=== PATIENT | female | born 1960 | race Caucasian/White ===

== ENCOUNTER 2016-05-05 09:57 | Emergency (ER) | payer MEDICAID ==
[~2016-05-05] VITALS: Ht 154.9 cm; Wt 45.0 kg
[2016-05-05 09:59] VITALS: BP 136/83; PULSE 68; RESP 16; TEMP 98.6; O2SAT 98
[2016-05-05 10:30] VITALS: O2SAT 99
--- NOTE | 2016-05-05 10:36 | PD ---
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 She has been coughing and wheezing. She denies any fevers or any other issues. Modifying Factors: None Associated Signs & Symptoms: Coughing, wheezing, shortness of breath Risk Factors: History of lung cancer PFSH Past Medical History Cancer: Yes (HX OF LUNG CANCER ) Past Surgical History Hysterectomy: Yes Thoracic Surgery: Yes (LUNG SURGERY ) Tympanostomy Tube: Yes Other Surgery: Yes (HIP SURGERY ) Social History Alcohol Use: Yes (3-4 beers a week ) Tobacco Use: No Substance Use: Yes (marajuian for pain ) Allergies-Medications (Allergen,Severity, Reaction): Coded Allergies: Demerol (Verified Allergy, Severe, Nausea/Vomiting, 05/05/16) Review of Systems Except as stated in HPI: all other systems reviewed are Neg Physical Exam Narrative GENERAL: Thin, well-developed elderly white female patient in mild respiratory distress. Awake and oriented 3. SKIN: Warm and dry. HEAD: Normocephalic. EYES: No scleral icterus. No injection or drainage. NECK: Supple, trachea midline. CARDIOVASCULAR: Regular rate and rhythm without murmurs, gallops, or rubs. RESPIRATORY: Breath sounds decreased at the right base, with wheezing mildly throughout bilaterally. Mild accessory muscle use. GASTROINTESTINAL: Abdomen soft, non-tender, nondistended. MUSCULOSKELETAL: No cyanosis, or edema. BACK: Nontender without obvious deformity. No CVA tenderness. Data Data Last Documented VS Vital Signs Date Time Temp Pulse Resp B/P Pulse Ox O2 Delivery O2 Flow Rate FiO2 05/05/16 10:30 99 Room Air 05/05/16 10:10 68 98 05/05/16 09:59 98.6 136/83 Orders Complete Blood Count With Diff (05/05/16 10:32) Basic Metabolic Panel (Bmp) (05/05/16 10:32) Influenzae A/B Antigen (05/05/16 10:32) Iv Access Insert/Monitor (05/05/16 10:32) Electrocardiogram (05/05/16 10:32) Ecg Monitoring (05/05/16 10:32) Oximetry (05/05/16 10:32) Oxygen Administration (05/05/16 10:32) Chest, Single Ap (05/05/16 10:32) Sodium Chloride 0.9% Flush (Ns Flush) (05/05/16 10:45) Methylprednisolone So Succ Inj (Solumedr (05/05/16 10:45) Albuterol-Ipratropium Neb (Duoneb Neb) (05/05/16 10:45) Labs Laboratory Tests Test 05/05/16 10:45 White Blood Count 5.1 TH/MM3 Red Blood Count 4.09 MIL/MM3 Hemoglobin 13.4 GM/DL Hematocrit 39.7 % Mean Corpuscular Volume 96.9 FL Mean Corpuscular Hemoglobin 32.8 PG Mean Corpuscular Hemoglobin 33.8 % Concent Red Cell Distribution Width 14.1 % Platelet Count 331 TH/MM3 Mean Platelet Volume 7.7 FL Neutrophils (%) (Auto) 55.2 % Lymphocytes (%) (Auto) 31.3 % Monocytes (%) (Auto) 9.4 % Eosinophils (%) (Auto) 2.3 % Basophils (%) (Auto) 1.8 % Neutrophils # (Auto) 2.8 TH/MM3 Lymphocytes # (Auto) 1.6 TH/MM3 Monocytes # (Auto) 0.5 TH/MM3 Eosinophils # (Auto) 0.1 TH/MM3 Basophils # (Auto) 0.1 TH/MM3 CBC Comment DIFF FINAL Differential Comment Sodium Level 140 MEQ/L Potassium Level 4.3 MEQ/L Chloride Level 106 MEQ/L Carbon Dioxide Level 25.8 MEQ/L Anion Gap 8 MEQ/L Blood Urea Nitrogen 18 MG/DL Creatinine 0.73 MG/DL Estimat Glomerular Filtration 82 ML/MIN Rate Random Glucose 84 MG/DL Calcium Level 9.0 MG/DL MDM Medical Decision Making Medical Screen Exam Complete: Yes Emergency Medical Condition: Yes Medical Record Reviewed: Yes Interpretation(s) Laboratory Tests Test 05/05/16 10:45 Monocytes (%) (Auto) 9.4 % (0.0-8.0) Estimat Glomerular Filtration 82 ML/MIN (>89) Rate Differential Diagnosis Coughing, wheezing, shortness of breathbronchitis versus pneumonia versus URI versus COPD exacerbation Narrative Course Chest x-ray does not show any signs of acute pulmonary processes. EKG did not show dysrhythmias. Her lab work was otherwise unremarkable. Patient was ordered for Solu-Medrol IV and nebulizers in the ER. However, she refused to get Solu-Medrol stating that it stays in her system. I have tried to talk to her regarding Solu-Medrol in order to help with airway inflammation in such respiratory case is. She also received nebulizers in the ER and on reevaluation at 12 PM is stating that she feels much better, does not want to stay for any further treatment. She states she wants to go home. At this point , she is walking around the ER, conversant. My plan would be to release her with follow-up to primary care physician. Return for any worsening in symptoms as necessary. The plan has been discussed with her and she is agreeable. Diagnosis Primary Impression: ACUTE BRONCHITIS, UNSPECIFIED Med/Other Pt SpecificInfo: Prescription(s) given Scripts Albuterol 6.7 GM Inh (Proventil Hfa 6.7 GM Inh)90 Mcg/Act Aer2 Puff INH Q4-6H PRN (SHORTNESS OF BREATH) #1 INHALER Ref 0 Prov:Radha Castellano MD 05/05/16 Prednisone 50 Mg Tab50 Mg PO DAILY #3 TAB Ref 0 Prov:Radha Castellano MD 05/05/16 Disposition: 01 DISCHARGE HOME Condition: Stable Radha Castellano MD May 05, 2016 10:36
[2016-05-05] MEDS: RESP: ALBUTEROL 2.5 MG/IPRATROPIUM 0.5 MG NEB (SCH) INH (10:41)
[2016-05-05] MEDS ORDERED: SODIUM CHLORIDE 0.9% FLUSH 5 ML FLUSH IVF PRN (10:45)
[2016-05-05] MEDS ORDERED: methylPREDNISolone SOD SUCC 125 MG/2 ML VIAL IVP ONE (10:45)
[2016-05-05 10:58] LABS: AUTOMATED NEUTROPHIL # 2.8 TH/MM3 (1.8-7.7); BASOPHIL # 0.1 TH/MM3 (0-0.2); BASOPHIL % 1.8 % (0.0-2.0); EOSINOPHIL # 0.1 TH/MM3 (0-0.4); EOSINOPHIL % 2.3 % (0.0-4.0); HEMATOCRIT 39.7 % (35.0-46.0); HEMO FLAGS DIFF FINAL; LYMPH % 31.3 % (9.0-44.0); LYMPHOCYTE # 1.6 TH/MM3 (1.0-4.8); MEAN CELL VOLUME 96.9 FL (80.0-100.0); MEAN CORPUSCULAR HEMOGLOBIN 32.8 PG (27.0-34.0); MEAN CORPUSCULAR HGB CONC 33.8 % (32.0-36.0); MONO % 9.4 % (0.0-8.0); NEUT % 55.2 % (16.0-70.0); PLATELET COUNT 331 TH/MM3 (150-450); RED BLOOD COUNT 4.09 MIL/MM3 (4.00-5.30); RED CELL DISTRIBUTION WIDTH 14.1 % (11.6-17.2); WHITE BLOOD COUNT 5.1 TH/MM3 (4.0-11.0)
[2016-05-05 11:15] LABS: BICARBONATE 25.8 MEQ/L (21.0-32.0); POTASSIUM 4.3 MEQ/L (3.5-5.1)
--- NOTE | 2016-05-05 11:47 | RADRPT ---
EXAM DATE/TIME: 05/05/2016 10:42 [facility] COMPARISON: No previous studies available for comparison. INDICATIONS: Short of breath and chest pain. MEDICAL HISTORY: Carcinoma, lung. SURGICAL HISTORY: Lobectomy. ENCOUNTER: Initial ACUITY: 3 days PAIN SCORE: 10/10 LOCATION: Left chest FINDINGS: The heart and mediastinal structures are normal. The pulmonary vascular pattern is also normal. The re is mild elevation of the right hemidiaphragm. The lungs are clear. CONCLUSION: 1. Mild elevation of the right hemidiaphragm. 2. No focal pulmonary infiltrate or pulmonary vascular congestion. Inocencio Zhou MD on May 05, 2016 at 11:40 Board Certified Radiologist. This report was verified electronically.
[2016-05-05] MEDS ORDERED: PRED50 PO (12:19)
[2016-05-05] MEDS ORDERED: ALBU6.7H INH (12:19)
== END 2016-05-05 12:24 | disposition home or self-care (01) ==
LOC: NEPC 09:57
DX: J20.9 Acute bronchitis, unspecified (principal); R06.02 Shortness of breath; Z85.118 Personal history of other malignant neoplasm of bronchus and lung
CPT/HCPCS: 71010; 80048; 85025; 94640; 94664